=== PATIENT | male | born 1985 ===

== ENCOUNTER 2023-10-29 10:14 | Inpatient (IN) | payer SELFPAY ==
[~2023-10-29] VITALS: Ht 167.6 cm; Wt 80.7 kg
[2023-10-29 10:33] VITALS: BP 148/71
[2023-10-29 10:49] LABS: BILIRUBIN Negative (Negative); BLOOD Negative (Negative); CLARITY Clear (Clear); COLOR Yellow (Yellow); GLUCOSE Negative (Negative); KETONE Trace (Negative); LEUKO ESTERASE Negative (Negative); NITRITE Negative (Negative); SPECIFIC GRAVITY 1.025 (1.001-1.030)
[2023-10-29 11:09] LABS: BACTERIA TRACE; WBC 0-2 wbc/hpf (0-5)
[2023-10-29 11:21] LABS: BASO % 0.7 % (0.0-1.0); EOS # 0.1 10*3/uL (0.0-0.4); EOS % 2.9 % (1.0-4.0); HEMATOCRIT 45.8 % (42.0-52.0); LYMPH # 1.7 10*3/uL (1.3-4.4); MEAN CELL VOLUME 89.5 fl (80.0-94.0); MEAN CORPUSCULAR HGB 29.7 pg (27.0-31.0); MEAN CORPUSCULAR HGB CONC 33.2 g/dl (33.0-37.0); MEAN PLATELET VOLUME 10.9 fl (9.6-12.3); MONO # 0.3 10*3/uL (0.1-1.0); MONO % 7.9 % (3.0-9.0); NEUT % 47.3 % (47.0-73.0); PLATELET COUNT AUTOMATED 157 10*3/uL (130-400); RED BLOOD COUNT 5.12 10*6/uL (4.50-5.90); RED CELL DISTRI WIDTH 12.9 % (0-14.5); WHITE BLOOD COUNT 4.2 10*3/uL (4.8-10.8)
[2023-10-29 11:36] LABS: ACT PARTIAL THROMBO TIME 30.6 SECONDS (20.0-32.1)
[2023-10-29 11:43] LABS: ALKALINE PHOSPHATASE 58 U/L (46-116); BUN 13 mg/dl (9-23); CHLORIDE 106 mmol/L (98-107); LIPASE 35 U/L (12-53); POTASSIUM 3.3 mmol/L (3.4-5.1); SGPT/ALT 38 U/L (5-49)
[2023-10-29 21:00] VITALS: BP 112/60
[2023-10-30] VITALS (9 sets, daily range): BP systolic 101–129; BP diastolic 55–74
[2023-10-30 05:26] LABS: ALKALINE PHOSPHATASE 59 U/L (46-116); BUN 13 mg/dl (9-23); CHLORIDE 104 mmol/L (98-107); CHOLESTEROL 225 mg/dL (<200); FREE T4 1.11 ng/dl (0.89-1.76); LDL CHOLESTEROL 139 mg/dL (9-159); POTASSIUM 3.6 mmol/L (3.4-5.1); SGPT/ALT 35 U/L (5-49); TOTAL PROTEIN 6.9 gm/dL (6.0-8.0); TRIGLYCERIDES 181 mg/dl (<150)
[2023-10-30] MEDS ORDERED: ATORVASTATIN CA40 M1 PO (12:10)
[2023-10-30] MEDS ORDERED: VITAMIN D3125 MCG PO (12:10)
[2023-10-30] MEDS ORDERED: HYDROCODONE-AC1 EAC1 PO (15:20)
== END 2023-10-30 17:42 | disposition home or self-care (01) | DRG 419 ==
LOC: ED 10:14 → EDHOLD 13:00 → 4E 10-30 14:23
PROVIDERS: Internal Medicine; Student in an Organized Health Care Education/Training Program; ADMIT Internal Medicine; ATTEND Internal Medicine
PROC: 0FT44ZZ Resection of Gallbladder, Percutaneous Endoscopic Approach (ICD-10-PCS; principal; 2023-10-30)
DX: K80.00 Calculus of gallbladder with acute cholecystitis without obstruction (principal); D72.819 Decreased white blood cell count, unspecified; E87.6 Hypokalemia; R73.9 Hyperglycemia, unspecified; R00.1 Bradycardia, unspecified; E55.9 Vitamin D deficiency, unspecified; E78.5 Hyperlipidemia, unspecified; Z79.899 Other long term (current) drug therapy; Z83.3 Family history of diabetes mellitus